=== PATIENT | female | born 1940 | race Caucasian/White ===

== ENCOUNTER → 2018-04-18 06:38 | Outpatient (CLI) | payer MEDICARE, SELFPAY ==
[2018-04-02 15:02] VITALS: BMI 34.0
--- NOTE | 2018-04-18 06:41 | ECHOD_ITS ---
Reason For Study: DYSPNEA/SOB Procedure This was a 2D Doppler, Color Flow transthoracic echocardiogram. Exam performed in department. Left Ventricle Normal LV size. Left ventricular systolic function is normal. The estimated ejection fraction is 70 %. Diastolic function is indeterminate. No regional wall motion abnormalities noted. Right Ventricle Normal RV size. Normal systolic function. Atria Normal left atrium. Normal right atrium. No doppler evidence for ASD. Mitral Valve There is mild mitral annular calcification. Extension of the mitral annular calcification onto the posterior mitral valve leaflet. Trivial mitral valve insufficiency. Tricuspid Valve Normal tricuspid valve. Trivial tricuspid valve insufficiency. Aortic Valve Trisinus/trileaflet aortic valve. Normal aortic valve. Trivial aortic valve insufficiency. Pulmonic Valve Normal pulmonic valve. Mild (1+) pulmonic valve insufficiency. Great Vessels Normal sized aortic root. Pericardium/Pleural No pericardial effusion. MMode/2D Measurements & Calculations LVIDd: 4.6 cm IVSd: 1.0 cm Ao root diam: 3.4 cm LVIDs: 2.3 cm LVPWd: 1.0 cm RVDd: 3.7 cm FS: 49.4 % LAV(MOD-bp): 52.6 ml LA A4 area: 17.5 cm2 LA dimension(2D): 4.5 cm LAV(MOD-bp) Indexed: 27.7 ml/m2 LAV(MOD-sp2): 54.8 ml LAV(MOD-sp4): 48.6 ml RA A4 area: 13.6 cm2 Time Measurements MV dec time: 0.21 sec Doppler Measurements & Calculations MV E max yomi: 99.1 cm/sec Lat Peak E' Yomi: 7.3 cm/sec Med Peak E' Yomi: 5.0 cm/sec MV A max yomi: 119.5 cm/sec E/E' lat: 13.6 E/E' med: 19.7 MV E/A: 0.83 Ao V2 max: 135.7 cm/sec AI max yomi: 416.2 cm/sec LV V1 max: 107.7 cm/sec Ao max P.4 mmHg AI max P.3 mmHg LV V1 max P.6 mmHg AI dec slope: 215.9 cm/sec2 AI P1/2t: 564.7 msec PA V2 max: 113.0 cm/sec Interpretation Summary Left ventricular systolic function is normal. The estimated ejection fraction is 70 %. There is mild mitral annular calcification. Extension of the mitral annular calcification onto the posterior mitral valve leaflet. Trivial mitral valve insufficiency. Trivial tricuspid valve insufficiency. Trivial aortic valve insufficiency. Mild (1+) pulmonic valve insufficiency. Diastolic function is indeterminate. Ordering Physician: Rigoberto Bender Referring Physician: Jeremiah Morales Performed By: Mini Rodriguez, RDCS, RVT
--- NOTE | 2018-04-18 14:49 | STRESSREP ---
Stress Test Report Date: 04/18/2018 Procedure: Pharmacologic stress nuclear imaging study Indications: Shortness of breath/dyspnea; chest pain Consent: Per the patient Procedure: The patient underwent pharmacologic (Regadenoson) evaluation with a peak heart rate of 118 beats per minute (81 predicted maximal heart rate) and a peak blood pressure of 154/88 mmHg. The baseline ECG demonstrated sinus bradycardia; nonspecific T wave abnormality. The peak pharmacologic ECG demonstrated no obvious ECG changes. There were no cardiac dysrhythmias pretest, during pharmacologic infusion, or recovery. There was no complaint of chest discomfort during pharmacologic infusion or recovery. The examination was discontinued secondary to completion of protocol. Impression: 1. Pharmacologic (Regadenoson) evaluation 2. Peak pharmacologic ECG with no obvious ECG changes. 3. There were no cardiac dysrhythmias pretest, during pharmacologic infusion, or recovery. 4. Nuclear images pending Myocardial perfusion imaging study: Technique: The patient was injected with 11.5 millicuries of technetium 99m Cardiolite and subsequently rest SPECT Cardiolite nuclear imaging was obtained in the horizontal long, vertical long, and short axis views. The patient underwent pharmacologic (Regadenoson) evaluation with a peak heart rate of 118 beats per minute (81 % percent predicted maximal heart rate) and a peak blood pressure of 154/88 mmHg. The patient was injected with 33.4 millicuries of technetium 99m Cardiolite and subsequently stress SPECT Cardiolite nuclear imaging was obtained in the horizontal long, vertical long, and short axis views. A gated Cardiolite study at peak stress was obtained. Interpretation: Rest and stress SPECT Cardiolite nuclear imaging status post realignment, normalization, and attenuation correction demonstrate both of uniform tracer uptake and myocardial perfusion appearing within normal limits. There is end systolic thickening and brightening. The gated Cardiolite study demonstrates myocardial thickening and inward wall motion. The reported LVEF is 90 %. Impression: 1. Rest and stress SPECT Cardiolite nuclear imaging demonstrate relative uniform tracer uptake and myocardial perfusion appearing within normal limits. 2. The gated Cardiolite study reports an LVEF of 90 %. This note was generated with [employer] software. It may contain incorrect words, spelling, and punctuation that were not noted in checking the note before signing.
--- OUTSIDE RECORDS SUMMARY | 2018-06-13 01:02 | XMS RPT_ITS | Clinical Summary ---
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 Fatigue 29091431 Active Rigoberto Palomo Fatigue (SNOMED 06/04 06/[address] [place] [address]) BODY MASS Z68.34 Active Rigoberto Palomo Body mass index INDEX (ICD-10-CM 06/13 06/13 [place] (BMI) 34.0-34.9 ) 34.0-34.9, ADULT adult Hyperlipide 85275364 Active Rigoberto Palomo Hyperlipidemia patricia (SNOMED 06/02 06/[address] [place] [address]) BODY MASS Z68.31 Inactive Rigoberto Palomo Body mass index INDEX (ICD-10-CM 06/13 06/13 [place] (BMI) 31.0-31.9 ) 31.0-31.9, ADULT adult PALPITATION 86512577 Active Rigoberto Palomo Palpitations S (SNOMED 06/07 06/[address] [place] [address]) CHEST PAIN R07.9 Active Keila Browne Chest pain, UNSPECIFIED (ICD-10-CM 09/09 09/09 RN unspecified ) ABNORMAL 970403408 Active Keila Browne Electrocardiogr ELECTROCARD (SNOMED 09/09 09/09 RN am abnormal IOGRAM CT) SUPRAVENTRI [id number] Active Keila Browne H/O: heart CULAR (SNOMED 09/04 09/[address]) , PAROXYSMAL, HX OF Medications Medication Instructions Start Stop Generic Name NDC Provider Date Date METOPROLOL One tablet by / METOPROLOL [id number] Rigoberto Palomo TARTRATE 25 MG mouth twice 19 TARTRATE [place] TABS daily ATORVASTATIN One tablet by / ATORVASTATIN 37169851018 Rigoberto Palomo CALCIUM 20 MG mouth daily 04 CALCIUM [place] TABS METOPROLOL One tablet by / METOPROLOL 35250517847 Rigoberto Palomo SUCCINATE ER 50 mouth daily 19 SUCCINATE [place] MG [id number] METOPROLOL One tablet by / METOPROLOL [id number] Rigoberto Palomo SUCCINATE ER 50 mouth daily 19 SUCCINATE [place] MG [id number]-[id number] METOPROLOL One tablet by / METOPROLOL 05215886688 Rigoberto Palomo SUCCINATE ER 50 mouth daily 19 SUCCINATE [place] MG [id number] METOPROLOL One tablet by / METOPROLOL [id number] Rigoberto Palomo SUCCINATE ER 25 mouth daily 24 SUCCINATE [place] MG LU86P-FTT VITAMIN D 2000 One tablet by / CHOLECALCIFEROL 49969198302 Rigoberto Palomo UNIT TABS mouth daily 25 [place] CALTRATE 600 One tablet by / CALCIUM CARBONATE [id number] Keila Ariza Fair TABS mouth daily 24 TABS RN FINACEA GEL topical twice / AZELAIC ACID GEL 24012916842 Keila Ariza Fair daily 24 RN FINACEA GEL topical twice / AZELAIC ACID GEL 04211628029 Rigoberto Palomo daily [place] BENTYL 20 MG 1 tablet by / DICYCLOMINE HCL 99393573020 Rigoberto Palomo TABS mouth before [place] all meals as MD needed BENTYL 20 MG 1 tablet by / DICYCLOMINE HCL 51237823013 Rigoberto Palomo TABS mouth before [place] all meals as MD needed ATORVASTATIN One tablet by ATORVASTATIN 52355347593 Rigoberto Palomo CALCIUM 20 MG mouth daily CALCIUM [place] TABS OMEGA 3 CPDR One tablet by / OMEGA-3 FATTY 76577233957 Rigoberto F mouth daily 16 ACIDS CPDR [place] OMEGA 3 CPDR One tablet by OMEGA-3 FATTY 39509049916 Rigoberto F mouth daily ACIDS CPDR [place] TYLENOL As needed / ACETAMINOPHEN 18702677108 Rigoberto Palomo ARTHRITIS PAIN 14 [place] 650 MG CR-TABS TYLENOL As needed / ACETAMINOPHEN 69374805765 Rigoberto Palomo ARTHRITIS PAIN 14 / [place] 650 MG CR-TABS OMEPRAZOLE 20 One tablet by / OMEPRAZOLE 46843521386 Rigoberto F MG CPDR mouth daily 19 [place] TRAMADOL HCL 50 One tablet by / TRAMADOL HCL 95851526753 Rigoberto F MG TABS mouth Q6H As 16 [place] needed TRAMADOL HCL 50 One tablet by TRAMADOL HCL 18123626825 Rigoberto F MG TABS mouth Q6H As [place] needed SYNTHROID 112 One tablet by / LEVOTHYROXINE 45176032992 Rigoberto Dewey MCG TABS mouth daily x 6 24 SODIUM [place] days 1/2 tablet MD x 1 day MULTIVITAMIN Three tablets / MULTIPLE 71204511744 Rigoberto Palomo GUMMIES ADULT by mouth daily 16 VITAMINS-MINERALS [place] CHEW VITAMIN C 1000 One tablet by / ASCORBIC ACID 61784605811 Rigoberto F MG TABS mouth daily 24 [place] JAMES CALCIUM GUMMIES Two tablets by / CALCIUM-PHOSPHORU 72825643884 Rigoberto Palomo CHEW mouth twice 24 S-VITAMIN D CHEW [place] daily METOPROLOL Two tablets by / METOPROLOL 42178515657 Rigoberto Palomo SUCCINATE ER 25 mouth daily 19 SUCCINATE [place] MG [id number]-LFR METOPROLOL Two tablets by / METOPROLOL 36034172843 Rigoberto Palomo SUCCINATE ER 25 mouth daily / SUCCINATE [place] MG PF42B-DSI CO Q-10 100 MG One tablet by / COENZYME Q10 19442371791 Keila Ariza [place] CAPS mouth daily 24 RN CO Q-10 100 MG One tablet by COENZYME Q10 74503774857 Rigoberto F CAPS mouth daily Napoleon JAMES SYNTHROID 112 One tablet by / LEVOTHYROXINE 35506513177 Keila Ariza Fair MCG TABS mouth daily 24 SODIUM RN BENTYL 10 MG One tablet by / DICYCLOMINE HCL 62913728703 Keila Ariza Fair CAPS mouth four 24 RN times daily OMEPRAZOLE 20 One tablet by / OMEPRAZOLE 47065961421 Keila Ariza Fair MG CPDR mouth twice 24 RN daily KRILL OIL 1000 1/2 tablet / KRILL OIL 92254587518 Keila Ariza Fair MG CAPS daily 24 RN KRILL OIL 1000 1/2 tablet KRILL OIL 02702037524 Rigoberto F MG CAPS daily Napoleon JAMES VITAMIN C 500 One tablet by / ASCORBIC ACID 47865331027 Keila Ariza Fair MG TABS mouth daily 24 RN CITRACAL/VITAMI One tablet by / CALCIUM 58447110562 Rigoberto F N D TABS mouth daily 24 CITRATE-VITAMIN D Napoleon BENITO MD VITAMIN D3 5000 One tablet by / CHOLECALCIFEROL 05495100619 Rigoberto F UNIT TABS mouth daily Napoleon JAMES VITAMIN D3 5000 One tablet by CHOLECALCIFEROL 56383176028 Rigoberto F UNIT TABS mouth daily Napoleon JAMES KRILL OIL 1000 One tablet by / KRILL OIL 28191140209 Rigoberto F MG CAPS mouth daily 25 Napoleon JAMES KRILL OIL 1000 One tablet by KRILL OIL 85940753657 Rigoberto F MG CAPS mouth daily Napoleon JAMES L-GLUTAMINE 500 One tablet by / GLUTAMINE 51061607196 Rigoberto F MG CAPS mouth daily 14 Napoleon JAMES L-GLUTAMINE 500 One tablet by GLUTAMINE 18571250104 Rigoberto F MG CAPS mouth daily Napoleon JAMES GLUCOSAMINE One tablet by / GLUCOSAMINE 04637538471 Rigoberto F SULFATE 500 MG mouth daily 25 SULFATE Napoleon BENITO MD GLUCOSAMINE One tablet by GLUCOSAMINE 67528231389 Rigoberto Palomo SULFATE 500 MG mouth daily SULFATE Noraistherese BENITO MD CHROMIUM One tablet by / CHROMIUM 94103212499 Rigoberto aPlomo PICOLINATE 200 mouth daily 25 PICOLINATE [place] MCG TABS CHROMIUM One tablet by CHROMIUM 25197816155 Rigoberto Palomo PICOLINATE 200 mouth daily PICOLINATE [place] MCG TABS ASPIRIN 81 MG One tablet by / ASPIRIN 85056167432 Rigoberto Dewey TBEC mouth daily 16 Napoleon JAMES MONTELUKAST One tablet by / MONTELUKAST 52158156027 Rigoberto Palomo SODIUM 10 MG mouth daily 08 SODIUM Napoleon BENITO MD VITAMIN B-6 100 One tablet by / PYRIDOXINE HCL 71289760945 Rigoberto F MG TABS mouth daily 08 Napoleon JAMES VITAMIN B-12 One tablet by / CYANOCOBALAMIN 23420072249 Rigoberto Dewey 1000 MCG TABS mouth daily 08 Napoleon JAMES OMEPRAZOLE 20 One tablet by / OMEPRAZOLE 06752170026 Rigoberto Dewey MG CPDR mouth daily as 19 Napoleon swan MD Medications Administered No information available. Allergies, Adverse Reactions, Alerts Allergy Name Reaction Description Start Date Severity Status Provider NKDA Mild Active Rigoberto Bender MD NKA Mild No Longer Rigoberto Bender Active Results Date Name Value Unit Range Flag Description Clinical Lists Update: Preload VLDL 57 mg/dL very low density lipoproteins GLUCOSE SER 88 mg/dL blood glucose BUN/CREAT 16.7 urea nitrogen/creatinine ratio, serum CREATININE 0.9 mg/dL creatinine, serum BUN 15 mg/dL urea nitrogen, blood ANION GAP 9 anion gap, serum CO2 27.0 mmol/L carbon dioxide, venous blood CHLORIDE 108 mmol/L chloride, serum POTASSIUM 3.8 mmol/L potassium, serum SODIUM 144 mmol/L sodium, serum PLATELETS 218 10*3/mm3 platelet count MCH 30.4 pg mean corpuscular hemoglobin, RBC MCV 88.9 fL mean corpuscular volume, RBC HCT 39.9 % hematocrit, blood HGB 13.6 g/dL hemoglobin, blood RBC M/UL 4.49 10*6/uL red blood count WBC BLOOD 7.0 10*9/L leukocyte (white blood cells) count, blood PROTEIN, TOT 5.9 g/dL L protein, total, serum SGOT (AST) 22 U/L aspartate aminotransferase (SGOT), serum SGPT (ALT) 32 U/L alanine aminotransferase (SGPT), serum ALK PHOS 57 U/L alkaline phosphatase, serum BILI DIRECT 0.2 mg/dL H bilirubin, serum, direct BILI TOTAL 1.0 mg/dL bilirubin, serum, total ALBUMIN 3.9 g/dL albumin, serum CHOL/HDL 3.3 cholesterol/HDL ratio, serum LDL 42 mg/dL Cholesterol in LDL [Mass/volume] in Serum or Plasma HDL 39 mg/dL L Cholesterol in HDL [Mass/volume] in Serum or Plasma CHOLESTEROL 127 mg/dL Cholesterol [Mass/volume] in Serum or Plasma TRIGLYCRDES 232 mg/dL H Triglyceride [Mass/volume] in Serum or Plasma CARDEFECHO 70 % Left ventricular Ejection fraction 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 MEDS REVIEW Done Documentation of current medications (procedure) FALLRSKASSES No Fall risk assessment Plan of Care Type Date Detail Appointment 03:00 PM Rigoberto Bender MD, [address], [address], [place], [address], Pending order PFM Pending order Follow Up Appt 1 year Pending order *Hepatic Function Panel Pending order *Lipid Profile CC PCP Pending order *Hepatic Function Panel Pending order *Lipid Profile CC PCP Pending order PFM Pending order Follow Up Appt 1 year Pending order *Hepatic Function Panel Pending order *Lipid Profile CC PCP Pending order *Hepatic Function Panel Pending order *Lipid Profile CC PCP Pending order PFM Pending order Follow Up Appt 1 year Pending order *Hepatic Function Panel Pending order *Lipid Profile CC PCP Pending order *Lipid Profile CC PCP Pending Order excluded from report: Pending order *Hepatic Function Panel Pending Order excluded from report: Pending order *Hepatic Function Panel Pending order *Lipid Profile CC PCP Pending order PFM Pending order Follow Up Appt 1 year Pending order *Hepatic Function Panel Pending order *Lipid Profile CC PCP Pending order PFM Pending order Follow Up Appt 1 year Pending order Follow Up Appt Other Pending order PFM Pending order Follow Up Appt 6 months Pending order Follow Up Appt 6 months Pending order *Hepatic Function Panel Pending order *Lipid Profile Pending order 30 Day Holter Monitor Pending order Follow Up Appt 6 months Pending order 24 hour holter monitor Patient education LOW%20FAT%20DIET Patient education HYPERLIPIDEMIA, HYPERLIPIDEMIA Procedures Code Procedure Name Date Entry Date F/U PFM PFM FUA 1 year Follow Up Appt 1 year 0788-1 *Hepatic Function Panel 94840-0 *Lipid Profile CC PCP 0788-1 *Hepatic Function Panel 08149-6 *Lipid Profile CC PCP F/U PFM PFM FUA 1 year Follow Up Appt 1 year 09524-0 *Lipid Profile CC PCP Order excluded from report: 0788-1 *Hepatic Function Panel Order excluded from report: 0788-1 *Hepatic Function Panel 30936-2 *Lipid Profile CC PCP F/U PFM PFM FUA 1 year Follow Up Appt 1 year F/U Appt Follow Up Appt Other F/U PFM PFM FUA 1 year Follow Up Appt 1 year F/U PFM PFM FUA 6 months Follow Up Appt 6 months [id number]-63391 30 Day Holter Monitor FUA 6 months Follow Up Appt 6 months 0788-1 *Hepatic Function Panel 40310-3 *Lipid Profile FUA 6 months Follow Up Appt 6 months HM 24 hour holter monitor Vital Signs Date Name Value Unit Description BMI (Body Mass Index) 33.30 kg/m2 Body Mass Index [Ratio] BP Diastolic 74 mm[Hg] blood pressure, diastolic - 8462-4 BP Systolic 136 mm[Hg] blood pressure, systolic - 8480-6 Heart Rate 68 /min pulse rate E&M - 8867-4 Height 63 [in_us] height E&M - 8302-2 Height 160.02 cm height in centimeters E&M Respiratory Rate 16 /min respiratory rate E&M - 9279-1 Weight Measured 188 [lb_av] weight E&M - 3141-9 Weight Measured 85.27 kg weight in kilograms E&M BSA (Body Surface Area) 1.88 body surface area
--- OUTSIDE RECORDS SUMMARY | 2018-06-13 01:02 | XMS RPT_ITS | Clinical Summary ---
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 06/04 06/04 [place] heart disease ARTERY ) of [place] coronary artery without angina pectoris Fatigue 52191773 Active Rigoberto Palomo Fatigue (SNOMED 06/04 06/[address] [place] [address]) BODY MASS Z68.34 Active Rigoberto Palomo Body mass index INDEX (ICD-10-CM 06/13 06/13 [place] (BMI) 34.0-34.9 ) 34.0-34.9, ADULT adult Hyperlipide 66255810 Active Rigoberto Palomo Hyperlipidemia patricia (SNOMED 06/02 06/[address] [place] [address]) BODY MASS Z68.31 Inactive Rigoberto Palomo Body mass index INDEX (ICD-10-CM 06/13 06/13 [place] (BMI) 31.0-31.9 ) 31.0-31.9, ADULT adult PALPITATION 36019418 Active Rigoberto Palomo Palpitations S (SNOMED 06/07 06/[address] [place] [address]) CHEST PAIN R07.9 Active Keila Browne Chest pain, UNSPECIFIED (ICD-10-CM 09/09 09/09 RN unspecified ) ABNORMAL 304125408 Active Keila Ariza Hollie Electrocardiogr ELECTROCARD (SNOMED 09/09 09/09 RN am abnormal IOGRAM CT) SUPRAVENTRI 503738554 Active Keila Browne H/O: heart CULAR (SNOMED 09/04 09/[address]) , PAROXYSMAL, HX OF Medications Medication Instructions Start Stop Generic Name NDC Provider Date Date METOPROLOL One tablet by / METOPROLOL [id number] Rigoberto Palomo TARTRATE 25 MG mouth twice 19 TARTRATE [place] TABS daily ATORVASTATIN One tablet by / ATORVASTATIN [id number] Rigoberto Palomo CALCIUM 20 MG mouth daily 04 CALCIUM [place] TABS METOPROLOL One tablet by / METOPROLOL [id number] Rigoberto Palomo SUCCINATE ER 50 mouth daily 19 SUCCINATE [place] MG [id number] METOPROLOL One tablet by / METOPROLOL [id number] Rigoberto Palomo SUCCINATE ER 50 mouth daily 19 SUCCINATE [place] MG [id number] METOPROLOL One tablet by / METOPROLOL [id number] Rigoberto Palomo SUCCINATE ER 50 mouth daily 19 SUCCINATE [place] MG [id number] METOPROLOL One tablet by / METOPROLOL [id number] Rigoberto Palomo SUCCINATE ER 25 mouth daily 24 SUCCINATE [place] MG [id number]-[id number] BENTYL 10 MG One tablet by / DICYCLOMINE HCL [id number] Keila Ariza Fair CAPS mouth four 24 RN times daily OMEPRAZOLE 20 One tablet by / OMEPRAZOLE [id number] Keila Ariza Fair MG CPDR mouth twice 24 RN daily KRILL OIL 1000 1/2 tablet / KRILL OIL [id number] Keila Ariza Fair MG CAPS daily 24 RN ASPIRIN 81 MG One tablet by / ASPIRIN [id number] Rigoberto Palomo TBEC mouth daily 16 [place] JAMES MONTELUKAST One tablet by / MONTELUKAST 18999381137 Rigoberto Palomo SODIUM 10 MG mouth daily 08 SODIUM [place] BENITO MD VITAMIN B-6 100 One tablet by / PYRIDOXINE HCL 28498441392 Rigoberto Palomo MG TABS mouth daily 08 [place] JAMES ATORVASTATIN One tablet by ATORVASTATIN 45257851386 Rigoberto Palomo CALCIUM 20 MG mouth daily CALCIUM [place] TABS OMEGA 3 CPDR One tablet by / OMEGA-3 FATTY [id number] Rigoberto F mouth daily 16 ACIDS CPDR [place] JAMES OMEGA 3 CPDR One tablet by OMEGA-3 FATTY 37230942556 Rigoberto F mouth daily ACIDS CPDR [place] JAMES TYLENOL As needed / ACETAMINOPHEN 32782478154 Rigoberto Palomo ARTHRITIS PAIN 14 [place] 650 MG CR-TABS TYLENOL As needed ACETAMINOPHEN 54846916084 Rigoberto Palomo ARTHRITIS PAIN 14 /16 [place] 650 MG CR-TABS OMEPRAZOLE 20 One tablet by / OMEPRAZOLE 29709773477 Rigoberto F MG CPDR mouth daily 19 [place] JAMES TRAMADOL HCL 50 One tablet by / TRAMADOL HCL 04595019330 Rigoberto F MG TABS mouth Q6H As 16 [place] needed TRAMADOL HCL 50 One tablet by TRAMADOL HCL 88985886220 Rigoberto Dewey MG TABS mouth Q6H As [place] needed SYNTHROID 112 One tablet by / LEVOTHYROXINE 49989351645 Rigoberto Palomo MCG TABS mouth daily x 6 24 SODIUM [place] days 1/2 tablet MD x 1 day MULTIVITAMIN Three tablets / MULTIPLE 10590123965 Rigoberto Palomo GUMMIES ADULT by mouth daily 16 VITAMINS-MINERALS [place] CHEW VITAMIN C 1000 One tablet by / ASCORBIC ACID 64803227238 Rigoberto Palomo MG TABS mouth daily 24 [place] JAMES CALCIUM GUMMIES Two tablets by / CALCIUM-PHOSPHORU 35603263296 Rigoberto Palomo CHEW mouth twice 24 S-VITAMIN D CHEW [place] daily METOPROLOL Two tablets by METOPROLOL [id number] Rigoberto Palomo SUCCINATE ER 25 mouth daily SUCCINATE [place] MG [id number]-LAH CO Q-10 100 MG One tablet by / COENZYME Q10 93797815641 Keila Ariza [place] CAPS mouth daily 24 RN CO Q-10 100 MG One tablet by COENZYME Q10 58904504544 Rigoberto F CAPS mouth daily [place] JAMES SYNTHROID 112 One tablet by / LEVOTHYROXINE 29645087214 Keila Ariza Fair MCG TABS mouth daily 24 SODIUM RN VITAMIN D 2000 One tablet by / CHOLECALCIFEROL 26705437449 Rigoberto F UNIT TABS mouth daily [place] CALTRATE 600 One tablet by / CALCIUM CARBONATE 89204717631 Keila Ariza Fair TABS mouth daily 24 TABS RN FINACEA GEL topical twice / AZELAIC ACID GEL 30447986078 Keila Ariza Fair daily 24 RN FINACEA GEL topical twice / AZELAIC ACID GEL 43054932746 Rigoberto Dewey daily [place] JAMES BENTYL 20 MG 1 tablet by / DICYCLOMINE HCL 68171221252 Rigoberto Dewey TABS mouth before [place] all meals as MD needed BENTYL 20 MG 1 tablet by DICYCLOMINE HCL 07805865055 Rigoberto Dewey TABS mouth before [place] all meals as MD needed VITAMIN C 500 One tablet by / ASCORBIC ACID 31051169435 Keila Ariza Fair MG TABS mouth daily 24 RN CITRACAL/VITAMI One tablet by / CALCIUM 73601223805 Rigoberto Palomo N D TABS mouth daily 24 CITRATE-VITAMIN D [place] TABS VITAMIN D3 5000 One tablet by / CHOLECALCIFEROL 73583156319 Rigoberto Palomo UNIT TABS mouth daily [place] JAMES VITAMIN D3 5000 One tablet by CHOLECALCIFEROL 00567661640 Rigoberto Palomo UNIT TABS mouth daily [place] JAMES KRILL OIL 1000 One tablet by / KRILL OIL 12007114994 Rigoberto F MG CAPS mouth daily [place] JAMES KRILL OIL 1000 One tablet by KRILL OIL 10985394232 Rigoberto F MG CAPS mouth daily [place] JAMES L-GLUTAMINE 500 One tablet by / GLUTAMINE 67263844882 Rigoberto F MG CAPS mouth daily [place] JAMES L-GLUTAMINE 500 One tablet by GLUTAMINE 71035685156 Rigoberto F MG CAPS mouth daily [place] JAMES GLUCOSAMINE One tablet by / GLUCOSAMINE 90376698283 Rigoberto Dewey SULFATE 500 MG mouth daily 25 SULFATE [place] TABS GLUCOSAMINE One tablet by GLUCOSAMINE 15956599481 Rigoberto Dewey SULFATE 500 MG mouth daily SULFATE [place] TABS CHROMIUM One tablet by / CHROMIUM 41217541631 Rigoberto Dewey PICOLINATE 200 mouth daily 25 PICOLINATE [place] MCG TABS CHROMIUM One tablet by CHROMIUM 29435472935 Rigoberto Dewey PICOLINATE 200 mouth daily / PICOLINATE [place] MCG TABS METOPROLOL Two tablets by / METOPROLOL 66691378634 Rigoberto Palomo SUCCINATE ER 25 mouth daily 19 SUCCINATE [place] MG [id number]-NWH KRILL OIL 1000 1/2 tablet KRILL OIL 38874594032 Rigoberto Dewey MG CAPS daily [place] JAMES VITAMIN B-12 One tablet by / CYANOCOBALAMIN 71393355212 Rigoberto Dewey 1000 MCG TABS mouth daily 08 [place] JAMES OMEPRAZOLE 20 One tablet by / OMEPRAZOLE 29467951869 Rigoberto F MG CPDR mouth daily as 19 Napoleon [...] Left ventricular Ejection fraction 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 Dietary management education, guidance, and counseling (procedure) SMOK STATUS Never smoker Tobacco use [facility] MEDS REVIEW Done Documentation of current medications (procedure) FALLRSKASSES No Fall risk assessment Plan of Care Type Date Detail Appointment 02:00 PM Rigoberto Bender MD, [address], [address], [place], [address], Appointment 03:00 PM Rigoberto Bender MD, [address], [address], [place], [address], Pending order PFM Pending order Follow Up [...] Appt 1 year 0788-1 *Hepatic Function Panel 79948-9 *Lipid Profile CC PCP 0788-1 *Hepatic Function Panel 86464-4 *Lipid Profile CC PCP F/U PFM PFM FUA 1 year Follow Up Appt 1 year 32357-7 *Lipid Profile CC PCP Order excluded from report: 0788-1 *Hepatic Function Panel Order excluded from report: 0788-1 *Hepatic Function Panel 44766-0 *Lipid Profile CC PCP F/U PFM PFM FUA 1 year Follow Up Appt 1 year F/U Appt Follow Up Appt Other F/U PFM PFM FUA 1 year Follow Up Appt 1 year F/U PFM PFM FUA 6 months Follow Up Appt 6 months [id number] 30 Day Holter Monitor FUA 6 months Follow Up Appt 6 months 0788-1 *Hepatic Function Panel 73408-3 *Lipid Profile FUA 6 months Follow Up [...]
--- OUTSIDE RECORDS SUMMARY | 2018-06-13 01:03 | XMS RPT_ITS ---
:1940 Author Organization OHIP Care Team Providers Name Role Phone REGGIE MORALES Admitting Unavailable REGGIE MORALES Attending Unavailable REGGIE MORALES Primary Care Unavailable REGGIE MORALES Consulting Unavailable PROVIDER, UNKNOWN Consulting Unavailable PROVIDER, UNKNOWN Consulting Unavailable PROVIDER, UNKNOWN Consulting Unavailable REGGIE MORALES Admitting Unavailable REGGIE MORALES Attending Unavailable MORALES, REGGIE A Primary Care Unavailable MORALES, REGGIE A Consulting Unavailable PROVIDER, UNKNOWN Consulting Unavailable PROVIDER, UNKNOWN Consulting Unavailable PROVIDER, UNKNOWN Consulting Unavailable MORALES, REGGIE A Admitting Unavailable MORALES, REGGIE A Attending Unavailable MORALES, REGGIE A Primary Care Unavailable MORALES, REGGIE A Consulting Unavailable PROVIDER, UNKNOWN Consulting Unavailable PROVIDER, UNKNOWN Consulting Unavailable PROVIDER, UNKNOWN Consulting Unavailable Natacha Yepez Attending Unavailable [place], Rigoberto Attending Unavailable [place], Rigoberto Attending Unavailable [place], Rigoberto Referring Unavailable Morales, Reggie Primary Care Unavailable [place], Rigoberto Attending Unavailable [place], Rigoberto Referring Unavailable Morales, Reggie Primary Care Unavailable [place], Rigoberto Consulting Unavailable PROBLEMS PROBLEMS DATE TYPE CONDITION / CODE ATTENDING STATUS SOURCE 04/18/2018 Unknown I49.1 - Atrial [place], Active [place] premature [facility] depolarization / Hospital I49.1(ICD-10) Repository 04/18/2018 Unknown I25.10 - [place], Active [place] Atherosclerotic heart [facility] disease of [facility] coronary artery Repository without angina pectoris / I25.10(ICD-10) 04/18/2018 Unknown I47.1 - [place], Active [place] Supraventricular [facility] tachycardia / Hospital I47.1(ICD-10) Repository 04/18/2018 [facility] [place] Hyperlipidemia, [facility] unspecified / Hospital E78.5(ICD-10) Repository 10/07/2017 Principle Essential (primary) REGGIE MORALES Active [facility] Rep[facility] 10/07/2017 Secondary Hyperlipidemia, REGGIE MORALES Active [facility] unspecified [facility] E785(ICD-10) [facility] Repository 10/07/2017 Secondary Dizziness and REGGIE MORALES Active [facility] Diagnosis giddiness / [facility] R42(ICD-10) [facility] Repository PROCEDURES PROCEDURES No Procedure Records FoundRESULTS RESULTS ECHOCARDIOGRAM COMPLETE Observed: 04/18/2018 Status: F Source: [place] 6:27 PM [facility] REPOSITORY [facility] Cardiovascular Services [address] [place] [address] Echo Complete 04/18/18 0908 MR#: [id number] Acct: [id number] Name: ZUNILDA DESAI Rep #: [id number] : 1940 78 From: Rigoberto Bender MD Attending Dr: Rigoberto Bender MD Status: REG CLI Ordering Dr: Rigoberto Bender MD Date: 04/18/18 Location: [facility] Sex: F C Admitted: Reason For Study: DYSPNEA/SOB Procedure This was a 2D Doppler, Color Flow transthoracic echocardiogram. Exam performed in department. Left Ventricle Normal LV size. Left ventricular systolic function is normal. The estimated ejection fraction is 70 %. Diastolic function is indeterminate. No regional wall motion abnormalities noted. Right Ventricle Normal RV size. Normal systolic function. Atria Normal left atrium. Normal right atrium. No doppler evidence for ASD. Mitral Valve There is mild mitral annular calcification. Extension of the mitral annular calcification onto the posterior mitral valve leaflet. Trivial mitral valve insufficiency. Tricuspid Valve Normal tricuspid valve. Trivial tricuspid valve insufficiency. Aortic Valve Trisinus/trileaflet aortic valve. Normal aortic valve. Trivial aortic valve insufficiency. Pulmonic Valve Normal pulmonic valve. Mild (1+) pulmonic valve insufficiency. Great Vessels Normal sized aortic root. Pericardium/Pleural No pericardial effusion. MMode/2D Measurements AND Calculations LVIDd: 4.6 cm IVSd: 1.0 cm Ao root diam: 3.4 cm LVIDs: 2.3 cm LVPWd: 1.0 cm RVDd: 3.7 cm FS: 49.4 % LAV(MOD-bp): 52.6 ml LA A4 area: 17.5 cm2 LA dimension(2D): 4.5 cm LAV(MOD-bp) Indexed: 27.7 ml/m2 LAV(MOD-sp2): 54.8 ml LAV(MOD-sp4): 48.6 ml RA A4 area: 13.6 cm2 Time Measurements MV dec time: 0.21 sec Doppler Measurements AND Calculations MV E max yomi: 99.1 cm/sec Lat Peak E' Yomi: 7.3 cm/sec Med Peak E' Yomi: 5.0 cm/sec MV A max yomi: 119.5 cm/sec E/E' lat: 13.6 E/E' med: 19.7 MV E/A: 0.83 Ao V2 max: 135.7 cm/sec AI max yomi: 416.2 cm/sec LV V1 max: 107.7 cm/sec Ao max P.4 mmHg AI max P.3 mmHg LV V1 max P.6 mmHg AI dec slope: 215.9 cm/sec2 AI P1/2t: 564.7 msec PA V2 max: 113.0 cm/sec Interpretation Summary Left ventricular systolic function is normal. The estimated ejection fraction is 70 %. There is mild mitral annular calcification. Extension of the mitral annular calcification onto the posterior mitral valve leaflet. Trivial mitral valve insufficiency. Trivial tricuspid valve insufficiency. Trivial aortic valve insufficiency. Mild (1+) pulmonic valve insufficiency. Diastolic function is indeterminate. Ordering Physician: Rigoberto Bender Referring Physician: Reggie Morales Performed By: Mini Rodriguez, ILIANA, RVT 04/18/181825 Date Rigoberto Bender MD CC: Rigoberto Bender MD; Reggie Morales MD Date Dictated: 04/18/1808 Date Transcribed: 04/18/181825 Parts Runner: Signed STRESS REPORT Observed: 04/18/2018 Status: F Source: [place] 2:52 PM [facility] REPOSITORY [facility] Cardiovascular Services [address] [place] [address] MR#: [id number] Acct: [id number] Name: LIAM MARIBELLZUINLDA C Rep #: [id number] : 1940 78 From: Rigoberto Bender MD Primary Care: Reggie Morales MD Status: REG CLI Ordering Dr: Sex: F Nelly Stress Test Report Date: 04/18/2018 Procedure: Pharmacologic stress nuclear imaging study Indications: Shortness of breath/dyspnea; chest pain Consent: Per the patient Procedure: The patient underwent pharmacologic (Regadenoson) evaluation with a peak heart rate of 118 beats per minute (81 predicted maximal heart rate) and a peak blood pressure of 154/88 mmHg. The baseline ECG demonstrated sinus bradycardia; nonspecific T wave abnormality. The peak pharmacologic ECG demonstrated no obvious ECG changes. There were no cardiac dysrhythmias pretest, during pharmacologic infusion, or recovery. There was no complaint of chest discomfort during pharmacologic infusion or recovery. The examination was discontinued secondary to completion of protocol. Impression: 1. Pharmacologic (Regadenoson) evaluation 2. Peak pharmacologic ECG with no obvious ECG changes. 3. There were no cardiac dysrhythmias pretest, during pharmacologic infusion, or recovery. 4. Nuclear images pending Myocardial perfusion imaging study: Technique: The patient was injected with 11.5 millicuries of technetium 99m Cardiolite and subsequently rest SPECT Cardiolite nuclear imaging was obtained in the horizontal long, vertical long, and short axis views. The patient underwent pharmacologic (Regadenoson) evaluation with a peak heart rate of 118 beats per minute (81 % percent predicted maximal heart rate) and a peak blood pressure of 154/88 mmHg. The patient was injected with 33.4 millicuries of technetium 99m Cardiolite and subsequently stress SPECT Cardiolite nuclear imaging was obtained in the horizontal long, vertical long, and short axis views. A gated Cardiolite study at peak stress was obtained. Interpretation: Rest and stress SPECT Cardiolite nuclear imaging status post realignment, normalization, and attenuation correction demonstrate both of uniform tracer uptake and myocardial perfusion appearing within normal limits. There is end systolic thickening and brightening. The gated Cardiolite study demonstrates myocardial thickening and inward wall motion. The reported LVEF is 90 %. Impression: 1. Rest and stress SPECT Cardiolite nuclear imaging demonstrate relative uniform tracer uptake and myocardial perfusion appearing within normal limits. 2. The gated Cardiolite study reports an LVEF of 90 %. This note was generated with MediaBo[employer] software. It may contain incorrect words, spelling, and punctuation that were not noted in checking the note before signing. 04/18/18 1452 <Electronically signed by Rigoberto Bender MD> Date Rigoberto Bender MD CC: Rigoberto Bender MD; Reggie Morales MD Date Dictated: 04/18/18 144 Date Transcribed: 04/18/18 144 Parts Runner: PM Signed CARDIOLOGY VISIT Observed: 04/02/2018 Status: F Source: [place] REPORT 3:46 PM [facility] REPOSITORY [facility] [address] [place] [address] OFFICE VISIT Date of Service: 04/02/18 MR#: [id number] Acct: [id number] Name: ZUNILDA DESAI Rep #: [id number] : 1940 Provider: Rigoberto Bender MD Age/Sex: 77/F Location: [facility] Status: Signed HPI HPI Details: ZUNILDA REYNA, is a 77 F who presents to the office today for outpatient cardiovascular follow-up. From a cardiac standpoint she denies ongoing chest discomfort. She does states she is becoming more short of breath and dyspneic with activity especially with an incline such as stairs. She has been attributing this to her knee discomfort as she states since her knee replacement surgery it has not worked. However the same time she knows there may be concerns besides her orthopedic issues contributing to her exertional shortness of breath and dyspnea. There is been no orthopnea or PND or worsening peripheral pitting edema. There has been no near syncope or syncope. She states she is due for upcoming laboratory work by her PCP. Intake Vital Signs04/02/18 Height 5 ft 3 in 04/02/18 Weight: 192 lb 04/02/18 Body Mass Index (BMI) 34.0 04/02/18 Blood Pressure 140/68 H Intake Visit Reasons: 1 Y FU Allergies No Known Allergies Allergy (Unverified 04/02/18 15:02) Medications aspirin 81 mg tablet,delayed release 81 mg PO DAILY 04/01/18 [History Confirmed 04/02/18] levothyroxine 112 mcg tablet 112 mcg PO DAILY 04/01/18 [History Confirmed 04/02/18] omeprazole 20 mg tablet,delayed release 20 mg PO DAILY PRN 04/01/18 [History Confirmed 04/02/18] escitalopram 5 mg tablet 5 mg PO DAILY 04/02/18 [History Confirmed 04/02/18] metoprolol tartrate 25 mg tablet 25 mg PO BID #180 tab 04/02/18 [Rx Confirmed 04/02/18] multivitamin tablet 1 tab PO DAILY 04/02/18 [History Confirmed 04/02/18] [facility] Medical History Hyperlipemia (Chronic) Premature atrial contractions (Acute) Paroxysmal supraventricular tachycardia (Acute) Atherosclerotic heart disease of [place] coronary artery without angina pectoris (Chronic) GERD (gastroesophageal reflux disease) (Chronic) History of DVT (deep vein thrombosis) (Acute) Hypothyroidism (Acute) Transient global amnesia (Acute) Thyroid cancer (Chronic) History of hypothyroidism (Inactive) Surgical History History of cholecystectomy (Resolved) History of left knee replacement (Resolved) Family History Mother Aneurysm Father Colon cancer Social History Smoking Status: Never smoker ROS Const Const: Positive for fatigue (increased); negative for weakness, weight gain, weight loss, frequent falls or excessive sweating Eyes Eyes: Negative for change in vision, blurry vision or transient loss of vision ENT ENT: Negative for dizziness or balance problems Cardio Chest Pain: No Palpitations: Yes (occasional) feels like its: fast Edema: None Muscle aches with walking: None Resp Respiratory: Positive for SOB with activity (increased going upstairs); negative for SOB at rest GI GI: Negative vomiting or vomiting blood/hematemesis : Negative for hematuria Musc Musc: Positive for joint pain (left knee); negative for balance problems, muscle aches/ myalgia or muscle weakness Skin Skin: Negative non-healing lesions or rash Neuro Neuro: Negative for weakness, blurry vision, dizziness, lightheadedness, frequent falls or orthostatic symptoms Ellis Hematologic/Lymphatic: Negative for easy bleeding Endo Endo: Positive for fatigue (increased); negative for excessive sweating Psych Psych: Negative for anxiety or depression Allergy Allergy/Immunology: Negative for hives, Negative for rash Cardiology Exam Const Appearance: cooperative, healthy appearing, comfortable, no acute distress, well developed and well groomed Nutritional Appearance: overweight Orientation: alert, awake and oriented x3 Head Head: normal to inspection, normocephalic and atraumatic Ears: hearing grossly normal bilaterally Nose: external nose normal Face and Sinus: face symmetric Mouth: oral mucosae normal Teeth and gingiva: fair dentition Eyes Eyelids: eyelids normal Conjunctivae: conjunctivae normal Pupils: PERRL EOM: EOM intact bilaterally Neck Neck: normal visual inspection and full ROM Carotids: normal carotid upstroke Chest Chest inspection: normal inspection of the chest, symmetric chest movement and normal respiratory effort Auscultation: Bilateral: Clear to Auscultation Cardio Palpation: normal PMI Rate: regular rate Rhythm: regular rhythm Heart sounds: S1 normal and S2 normal GI GI: normal to inspection, bowel sounds present and soft Neuro General: alert, awake, oriented x3 and moves all extremities Skin Skin: no rashes or lesions noted Extremities Pulses: Normal: Right Radial Pulse, Left Radial Pulse Lower Extremity Edema: None: Bilateral Psych Psychological: normal affect Supplemental Info Transthoracic cardiogram: 09/05/2011 Summary Left ventricular systolic function is normal. The estimated ejection fraction is 65 %. Borderline to mildly enlarged left atrium. Trivial mitral valve insufficiency. Trivial tricuspid valve insufficiency. Cardiac catheterization: 09/05/2011 FINAL IMPRESSION 1. Relatively normal resting left ventricular end-diastolic pressure. 2. Left ventricle: A. Normal left ventricular size, wall motion, systolic function. B. Estimated left ventricular ejection fraction 70 percent. 3. Left main coronary artery: A. Large long vessels. B. Proximal, smooth 10 percent concentric-appearing tapering/stenosis 4, Left anterior descending coronary: A. Proximal, minimal luminal irregularities. A. Distal tortuosity. 5. Left circumflex coronary: A. Angiographically normal. 6. Intermediate ramus coronary: A. A very small bifurcating vessel. A. Angiographically normal. 7. Right coronary: A. Very large dominant vessel. B. Angiographically normal. Holter monitor: 10/02/2011 NORMAL SINUS RHYTHM WITH RARE PERIODS OF MARKED SINUS ARRHYTHMIA. MINIMUM HR 41 BPM AT 6:51:12 AM WHILE ASLEEP, RECORDED RIGHT ARM PAIN WHILE SLEEPING, AVERAGE HR 71 BPM MAXIMUM HR 113 BPM AT 4:11:50 PM, NO ACTIVITY OR SYMPTOM RECORDED. RARE ISOLATED PREMATURE ATRIAL COMPLEXES. 4 ATRIAL COUPLETS. TWO RUNS TOTALING 7 BEATS. THE LONGEST RUN WAS 4 BEATS OF PROBABLE ECTOPIC ATRIAL RHYTHM RATE 93 BPM AT 12:36:25 AM. THE FASTEST RUN WAS AN ATRIAL TRIPLET RATE 103 BPM AT 12:36:30 AM. NO ISOLATED PREMATURE VENTRICULAR COMPLEXES. NO RUNS NOTED. THE ONLY SYMPTOM DOCUMENTED IN 24 HOUR HOLTER DIARY WAS RIGHT ARM PAIN FROM 11:30 PM TO 7:[address] CHANGES NOTED THRU OUT THAT PERIOD, Event monitor: March 2012 During the 30 day monitoring period the basic rhythm was sinus arrhythmia with rates from 57-88 bpm. No ectopic complexes were noted. No symptoms were submitted by the patient. Assessment AND Plan 1. PSVT (paroxysmal supraventricular tachycardia) I47.1 Plan At the present time she appears to be doing well with no obvious ongoing palpitations or rapid rate sensation. There is been no near syncope or syncope. There is been no hemodynamic compromise. She will continue her current medical management and follow Orders Orders: 2. Premature atrial beat I49.1 Plan Again she is not complaining of any ongoing ectopy at this time. She will continue her current medical therapy and follow-up Orders Orders: 3. 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 It is unclear whether her exertional shortness of breath/dyspnea is an angina pectoris equivalent or a noncardiovascular related. Her graph thus at the present time it was felt reasonable noting her cardiovascular risks and finding that she undergo reassessment. This will include a transthoracic echocardiogram to assess her left ventricular wall motion and systolic function and an exercise tolerance test/imaging study to assess her coronary physiology. Based upon her knee related issues/orthopedic issues she is unable to adequately walk on a treadmill. Thus this will need to be done pharmacologically Depending upon the findings she may or may not need additional cardiovascular evaluation. Orders Orders: 4. Hyperlipidemia, unspecified hyperlipidemia type E78.5 Plan She will continue her medical management. A copy of her upcoming lipid labs would be appreciated for continuity of care Orders Orders: Plan Detail Other Medications New: Additional Comments If her studies are unremarkable she will be scheduled for an outpatient visit approximately 1 year unless needed sooner. Thank you for allowing me to participate in the care of your patient. Please don't hesitate to call if any issues arise. This note was generated using a voice recognition system and there may be incorrect words, spelling or punctuation that were not noted when reviewing the office note prior to saving. Follow Up 1 Year (PFM) Coding Level of Care Code Off vis,est,level 5 Diagnoses PSVT (paroxysmal supraventricular tachycardia) I47.1 Premature atrial beat I49.1 Atherosclerotic heart disease of [place] coronary artery without angina pectoris I25.10 Hyperlipidemia, unspecified hyperlipidemia type E78.5 Hyperlipidemia type: unspecified Coding Level of Care Code Off vis,est,level 5 Diagnoses PSVT (paroxysmal supraventricular tachycardia) I47.1 Premature atrial beat I49.1 Atherosclerotic heart disease of [place] coronary artery without angina pectoris I25.10 Hyperlipidemia, unspecified hyperlipidemia type E78.5 Hyperlipidemia type: unspecified 04/02/18 1546 <Electronically signed by Rigoberto Bender MD> Date Rigoberto Bender MD Cosigner Signature: Date (if applicable) CC: Reggie Morales MD CBC Collected: 10/07/2017 Status: F Source: [place] 11:54 AM [facility] REPOSITORY TYPE CODE TESTS RESULT OUT OF RANGE REFERENCE UNITS LAB CBC(LOINC) CBC Result Comment: CBC-COMPLETE BLOOD COUNT LAB WBC(LOINC) 4.5 - 10.8 x 10EE3/UL WBC 7.6 LAB RBC(LOINC) 4.10 - x 10EE6/UL 5.30 RBC 5.03 LAB HEMOGLOBIN(LOINC) 12.0 - g/dl 16.0 HEMOGLOBIN 15.1 LAB HEMATOCRIT(LOINC) 34.0 - % 46.0 HEMATOCRIT 44.5 LAB MCV(LOINC) 80 - 99 fl MCV 89 LAB MCH(LOINC) 27 - 33 pg MCH 30 LAB MCHC(LOINC) 32 - 36 X10 3 MCHC 34 LAB RDW/CV(LOINC) 12.0 - % 15.6 RDW/CV 14.5 LAB PLATELET(LOINC) 150 - 450 x10EE3/UL PLATELET 257 LAB MPV(LOINC) 6.6 - 10.5 fl MPV 9.0 Result Comment: AUTOMATED DIFFERENTIAL LAB NEUT %(LOINC) 46.0 - 76.0 % NEUT % 49.7 LAB LYMPH %(LOINC) 20.0 - 45.0 % LYMPH % 37.7 LAB MONOS %(LOINC) 0.0 - 10.0 % MONOS % 8.3 LAB EO %(LOINC) 0.0 - 7.0 % EO % 3.3 LAB BASO %(LOINC) 0.0 - 2.0 % BASO % 1.0 LAB Lymph #(LOINC) 0.80 - 2.80 x10EE3/U L Lymph # High 2.90 LAB Neut #(LOINC) 1.50 - 7.10 x10EE3/U L Neut # 3.80 LAB [place] #(LOINC) 0.20 - 1.00 x10EE3/U L [place] # 0.60 LAB EO #(LOINC) 0.00 - 0.50 x10EE3/U L EO # 0.30 LAB Baso #(LOINC) 0.00 - 0.10 x10EE3/U L Baso # 0.10 LAB MANUAL DIFF(LOINC) MANUAL DIFF N/A LAB MORPHOLOGY(INC ) MORPHOLOGY N/A Result Comment: {CD] Performed By: #### [id number] #### [facility],[address] [place] [address] CMP WITH EGFR Collected: 10/07/2017 Status: F Source: [facility] 11:54 AM [facility] REPOSITORY TYPE CODE TESTS RESULT OUT OF RANGE REFERENCE UNITS LAB CMP with eGFR(LOINC) CMP with eGFR Result Comment: COMPREHENSIVE METABOLIC PANEL LAB SODIUM(LOINC) 136 - 145 mmol/l SODIUM 137 LAB POTASSIUM(LOINC) 3.5 - 5.1 mmol/L POTASSIUM 4.4 LAB CHLORIDE(LOINC) 98 - 107 mmol/L CHLORIDE 104 LAB CO2(LOINC) 21.0 - mmol/L 31.0 CO2 27.6 LAB GLUCOSE(LOINC) 74 - 106 mg/dl GLUCOSE 97 LAB BUN(LOINC) 6 - 20 mg/dl BUN 10 LAB CREATININE(LOINC) 0.6 - 1.2 mg/dl CREATININE 0.8 LAB AST/SGOT(LOINC) 13 - 39 U/L AST/SGOT 17 LAB ALK PHOS(LOINC) 38 - 126 U/L ALK PHOS 62 LAB CALCIUM(LOINC) 8.6 - mg/dl 10.2 CALCIUM 9.0 LAB TOTAL 6.4 - 8.3 g/dl PROTEIN(LOINC) TOTAL Low PROTEIN 6.2 LAB ALBUMIN(LOINC) 3.4 - 4.8 g/dL ALBUMIN 4.1 LAB GLOBULIN(LOINC) 1.5 - 3.8 G/DL GLOBULIN 2.1 LAB A/G RATIO(LOINC) 0.9 - 1.6 A/G High RATIO 2.0 LAB TOTAL BILI(LOINC) 0.0 - 1.5 mg/dl TOTAL BILI 0.8 LAB B/C RATIO(LOINC) 0 - 30 ratio B/C RATIO 13 LAB ALT/SGPT(LOINC) 8 - 35 U/L ALT/SGPT 20 LAB ANION GAP(LOINC) 10 - 20 mmol/L ANION GAP 10 LAB AGE(LOINC) years AGE 77 LAB eGFR(LOINC) 60 - 999 ML/MINUTE eGFR >60 LAB eGFR(AA)(LOINC) 60 - 999 ML/MINUTE eGFR(AA) >60 Result Comment: ACCORDING TO THE NATIONAL KIDNEY DISEASE EDUCATION PROGRAM(NKDE), A NORMAL eGFR IS A VALUE GREATER THAN OR EQUAL TO 60 ML/MIN/1.73 SQ METERS. CHRONIC KIDNEY DISEASE: <60mL/MIN/1.73 SQ METERS KIDNEY FAILURE: <15mL/MIN/1.73 SQ METERS THIS TEST SHOULD ONLY BE USED FOR PATIENTS 18 YEARS OF AGE AND OLDER. Performed By: #### [id number] #### [place] [address] LIPID PROFILE Collected: 10/07/2017 Status: F Source: [place] [place] 11:54 AM [facility] REPOSITORY TYPE CODE TESTS RESULT OUT OF REFERENCE UNITS RANGE LAB LIPID PROFILE(LOIN C) LIPID PROFILE Result Comment: LIPID PROFILE LAB TRIGLYCERIDE(LOINC) 0 - 150 mg/dl High TRIGLYCERIDE 460 LAB CHOLESTEROL(LOINC) 0 - 200 mg/dl CHOLESTEROL High 225 LAB HDL(LOINC) 40 - 60 mg/dl HDL 40 LAB CHOL/HDL(LOINC) 0.0 - 5.0 CHOL/HDL High 5.6 LAB LDL(LOINC) 0 - 129 mg/dl LDL N/A Performed By: #### [id number] #### [place] [id number] TSH Collected: 10/07/2017 Status: F Source: [facility] 11:54 AM [facility] REPOSITORY TYPE CODE TESTS RESULT OUT OF RANGE REFERENCE UNITS LAB TSH(LOINC) 0.34 - 5.60 uIU/ml TSH 1.66 Performed By: #### [id number] #### [place] [id number] MAMM DIGITAL BILAT Observed: 07/16/2017 Status: F Source: [place] SCREEN 1:37 PM [place] [address] Patient: ZUNILDA DESAI Phone#: : 1940 Age: 77 Gender: F Pt. Type: Out Account: [id number] Location: 062 Ordering: REGGIE MORALES Exam Date: 07/16/2017/13:15 Family Phys: Charge Code: [id number] Physician: [place] Order #: [id number] DLP Dose#: PROCEDURE: MAMM BILAT DIGITAL SCREENING WITH CAD COMPARISON: [facility], RT SPOT/MAG DIGITAL, 08/26/2014, 10:52. [facility], BILAT SCREENING, 09/20/2015, 11:18. INDICATIONS: Screening BREAST COMPOSITION: Scattered fibroglandular densities (25-50% glandular). FINDINGS: DIAGNOSTIC CATEGORY 1--NEGATIVE ASSESSMENT. RIGHT BREAST: No significant suspicious finding. No significant change has occurred. LEFT BREAST: No significant suspicious finding. No significant change has occurred. RECOMMENDATIONS: ROUTINE MAMMOGRAM AND CLINICAL EVALUATION. PLEASE NOTE: A NORMAL MAMMOGRAM DOES NOT EXCLUDE THE POSSIBILITY OF BREAST CANCER. A CLINICALLY SUSPICIOUS PALPABLE LUMP SHOULD BE BIOPSIED. THIS FACILITY UTILIZES A REMINDER SYSTEM TO ENSURE THAT ALL PATIENTS RECEIVE REMINDER LETTERS FOR APPOINTMENTS. THIS INCLUDES REMINDERS FOR ROUTINE MAMMOGRAMS, DIAGNOSITC MAMMOGRAMS, OR OTHER BREAST IMAGING INTERVENTIONS WHEN APPROPRIATE. THIS PATIENT WILL BE PLACED IN THE APPROPRIATE REMINDER SYSTEM. Dictated by: Mandie Lerma MD on 07/16/2017 at 13:39 Approved by: Mandie Lerma MD on 07/16/2017 at 13:39 CHEST PA/LAT Observed: 05/21/2017 Status: F Source: [facility] 10:57 AM [place] [address] Patient: ZUNILDA DESAI Phone#: : 1940 Age: 77 Gender: F Pt. Type: Out Account: [id number] Location: 062 Ordering: REGGIE MORALES Exam Date: 05/21/2017/10:49 Family Phys: Charge Code: [id number] Physician: [place] Order #: [id number] DLP Dose#: PROCEDURE: X-RAY CHEST PA/LAT 2 VIEWS COMPARISON: [facility], XR, CHEST PA/LAT, 09/10/2016, 13:14. INDICATIONS: Bronchitis FINDINGS: LUNGS: Mild chronic interstitial changes are present. The lungs are mildly hyperinflated. VASCULATURE: Normal. Unremarkable pulmonary vasculature. CARDIAC: Normal. No cardiac silhouette abnormality or cardiomegaly. MEDIASTINUM: Normal. No visible mass or adenopathy. PLEURA: Normal. No effusion or pleural thickening. BONES: Normal. No fracture or visible bony lesion. OTHER: Negative. CONCLUSION: No acute disease. Mild COPD. Dictated by: Mandie Lerma MD on 05/21/2017 at 10:58 Approved by: Mandie Lerma MD on 05/21/2017 at 10:58 ALLERGIES ALLERGIES DATE TYPE / CODE NAME / CODE REACTION SEVERITY SOURCE 04/02/2018 Drug No Known Unknown [place] Allergy/[id number](S Allergies/F0019 [facility] NOMED CT) 03739(RXNORM) Hospital Repository Miscellaneous No Known Drug Moderate Jorge [place] Allergy/[id number](S Allergies ([facility]) Modifier) Hospital (Qualifier Repository Value) ENCOUNTERS ENCOUNTERS ADMIT/DISCHARGE ACCOUNT ADMITTING ENCOUNTER LOCATION SOURCE NUMBER CLASS 04/18/2018 [id number] Ambulatory BMSBuilding:B [place] 5 [place].[facility] Repository 04/18/2018 [id number] Ambulatory [place] 6 [facility] ing:[facility] Repository 04/02/2018/ [id number] Ambulatory BMSBuilding:B [place] 8 3 MS[facility] Repository 04/01/2018 [id number] Ambulatory BMSBuilding:B [place] 3 [facility] Repository 10/07/2017/ [id number] [facility] 8 [facility] Repository 07/16/2017/ [id number] [facility] 8 [facility] Repository 05/21/2017/ [id number] [facility] 8 [facility] Repository PAYERS PAYERS ENCOUNTER GUARANTOR PAYER SUBSCRIBER SOURCE 04/18/2018 ZUNILDA Villegas Primary Insurance:LOKI Villegas [id number] Number: [id number], [id number] Repository [place] [address]Ffd: Date:6069-49-30[address], [place] () [id number]: 04/18/2018 Secondary NOT GIVENUNK [place] Insurance:SELF PAY [facility] Number: Effective Repository Date:2018-04-18 04/18/2018 ZUNILDA Villegas Primary Insurance:[facility] Number: [id number], [id number] [place]ository [place] [address]Dmp: Date:8770-18-50FS [address], [place] () [address]QZ: 04/18/2018 Secondary NOT GIVENUNK [place] Insurance:SELF PAY [facility] Number: Effective Repository Date:2018-04-02 04/02/2018 ZUNILDA Villegas Primary Insurance:LOKI [facility] Number: [id number], [id number] Repository [place] [address]Cnw: Date:2435-25-16[address], [place] () [phone]: 04/02/2018 Secondary NOT GIVENUNK [place] Insurance:SELF PAY [facility] Number: Effective Repository Date:2017-05-03 04/01/2018 ZUNILDA Villegas Primary Insurance:LOKI [facility] Number: [id number], [id number] Repository [place] [address]Jmv: Date:9307-21-35[address], [place] () [address]EJ: 04/01/2018 Secondary NOT GIVENUNK [place] Insurance:SELF PAY [facility] Effective Repository Date:2018-04-01 10/07/2017 [facility] MARIBELLPRISCILA BULLARDELLDOB: Insurance:[facility]: [facility] [id number] [facility] [address] Number: [address] Repository [address] [place] [address], [id number] [address] [place] [address] [place] [address]Ngl: Date:6779-27-51Ztzm [id number] Name: () 07/16/2017 [facility] ZUNILDA BULLARDELLDOB: Insurance[facility] [place] OUTPATIENTPoly TDOB: [facility] TR Number: [id number] Repository [address] [place] [address], [id number] [address] [place] [address]Ehx: Date:Plan Name:P O [address] [place] [address], [address], [place] [id number] () [id number]: 05/21/2017 [facility] Nelly BULLARDELLDOB: Insurance:[facility] [id number] [facility] [place] [facility] TD[facility]: Hospital TR Number: [id number] Repository [address] [place] [address], [id number] [address] [place] [address]Rib: Date:Plan Name:P1P O [address] [place] [address], [address] [phone] () [id number]:
== END ==
PROVIDERS: Family Provider Family Medicine; PCP Family Medicine; Referring Provider Internal Medicine Cardiovascular Disease; Visit Provider Internal Medicine Cardiovascular Disease
DX: I49.1 Atrial premature depolarization (principal); I25.10 Atherosclerotic heart disease of native coronary artery without angina pectoris; I47.1 Supraventricular tachycardia; E78.5 Hyperlipidemia, unspecified
CPT/HCPCS: 78452; 93017; 93306; A9500; A4216; J2785

== ENCOUNTER → 2019-02-17 15:51 | Outpatient (CLI) | payer MEDICARE, SELFPAY ==
[2018-04-02 15:02] VITALS: BMI 34.0
[2019-02-17 16:35] LABS: CREATININE FINGERSTICK 0.8 mg/dL (0.55-1.02); EGFR FINGERSTICK > 60.0000 mL/min (>60)
--- NOTE | 2019-02-17 16:45 | MRI_ITS ---
STUDY: MRI BRAIN WITH AND WITHOUT CONTRAST REASON FOR EXAM: Female, 78 years old. Dizziness and vertigo TECHNIQUE: Standardized multiplanar fat and water weighted pulse sequences were obtained. IV Dotarem 17 was administered for the contrast portion of the examination. COMPARISON: None. FINDINGS: Normal size of the ventricles and extra-axial spaces for the patient's age. Mild periventricular white matter ischemic changes without evidence for acute infarct Normal bilateral basal ganglia. Normal thalami. There is no extra-axial fluid accumulation. Normal flow voids within the major intracranial circulation suggesting patency by spin echo criteria. Normal venous enhancement. There is no enhancing intra-axial or extra-axial abnormality. Partial empty sella deformity. Normal, infundibular stalk, optic chiasm and hypothalamus. Normal tectal plate and pineal gland. Normal midbrain, echo and medulla. Normal cerebellum. Normal basal cisterns. Normal bilateral temporal bones. Normal bilateral internal auditory canals. No demonstrated orbital abnormality, within the constraints of a routine brain study. Diffuse opacification of the right maxillary sinus.. Normal calvarium and skull base. Normal visualized soft tissue structures. Normal visualized upper cervical spine. MRI/Brain W/WO Contrast IMPRESSION: Mild periventricular white matter ischemic changes without evidence for acute infarct.. No evidence for vestibular or acoustic schwannoma Electronically Signed: Oliver Acuña MD at 17:37 EDT , Service support ,
== END ==
PROVIDERS: Family Provider Family Medicine; PCP Family Medicine; Referring Provider Otolaryngology; Visit Provider Otolaryngology
DX: R27.0 Ataxia, unspecified (principal); R42 Dizziness and giddiness
CPT/HCPCS: 70553; A9575